=== PATIENT | female | born 1975 | race Caucasian/White ===

== ENCOUNTER 2016-06-01 15:06 | Emergency (ER) | payer MEDICAID ==
[~2016-06-01] VITALS: Ht 185.4 cm; Wt 186.0 kg
[~2016-06-01 15:06] MED LIST: ALBU90AE INH; BUDE10.2 INH; DICL100G8 TP; DULO30CA2 PO; FURO20TA3 PO; HYDR-3240 PO; HYDR-882 PO; MELO-184 PO; POTA10TA11 PO; SULF1TAB24 PO; TRAM50TA2 PO
[2016-06-01] MEDS ORDERED: SODIUM CHLORIDE 0.9% 1,000 ML IV ONE (15:37)
[2016-06-01] MEDS ORDERED: ONDANSETRON 2MG/ML, 2ML IVPush ONE (16:00)
[2016-06-01] MEDS ORDERED: SODIUM CHLORIDE FLUSH 10ML SYR IVF ONE (16:00)
[2016-06-01 16:05] LABS: BLOOD UREA NITROGEN 13 mg/dL (7-18)
[2016-06-01] MEDS ORDERED: ONDANSETRON 2MG/ML, 2ML ONE (16:23)
[2016-06-01] MEDS ORDERED: MORPHINE SULFATE 4 MG/ML, 1ML ONE (16:23)
[2016-06-01] MEDS ORDERED: morphine SULFATE 10 MG/ML, 1ML IVPush ONE (16:30)
[2016-06-01] MEDS ORDERED: OMNIPAQUE 350 MG/ML, 100ML BOTTLE ONE (17:54)
[2016-06-01 19:06] VITALS: BP 165/99
== END 2016-06-01 19:08 | disposition home or self-care (01) ==
LOC: ED 19:02
DX: K02.9 Dental caries, unspecified (principal); R10.2 Pelvic and perineal pain; D25.1 Intramural leiomyoma of uterus; J45.909 Unspecified asthma, uncomplicated; F17.200 Nicotine dependence, unspecified, uncomplicated; F12.10 Cannabis abuse, uncomplicated
CPT/HCPCS: 36415; 70487; 76830; 80048; 81001; 82040; 84703; 85025; 87086; 96361; 96374; 96375; 99285; J2270; J2405; J7030; Q9967

== ENCOUNTER → 2016-07-08 | Outpatient (CLI) | payer MEDICAID ==
[~2016-07-08] MED LIST changes: +OMNIPAQUE 350 MG/ML, 150 ML BOTTLE ONE
== END | disposition home or self-care (01) ==
LOC: CFH 07:15
PROVIDERS: ATTEND Obstetrics & Gynecology
DX: Z12.31 Encounter for screening mammogram for malignant neoplasm of breast (principal); R10.31 Right lower quadrant pain; D25.0 Submucous leiomyoma of uterus; K57.30 Diverticulosis of large intestine without perforation or abscess without bleeding; M46.1 Sacroiliitis, not elsewhere classified; N64.89 Other specified disorders of breast; Z90.49 Acquired absence of other specified parts of digestive tract
CPT/HCPCS: 74177; G0202; Q9967

== ENCOUNTER 2016-08-13 05:37 | Day surgery (SDC) | payer MEDICAID ==
[2016-08-11 16:30] LABS: BLOOD UREA NITROGEN 10 mg/dL (7-18)
[2016-08-11 16:52] LABS: ANISOCYTOSIS 1+; MICROCYTOSIS 1+; POLYCHROMASIA 1+
[2016-08-11 16:53] LABS: OVALOCYTES 1+
[~2016-08-13] VITALS: Ht 185.4 cm; Wt 184.5 kg
[~2016-08-13 05:37] MED LIST changes: +ALBU18HF PO; +FERROUS SULFATE PO; +FLUO20TA25 PO; -OMNIPAQUE 350 MG/ML, 150 ML BOTTLE ONE
[2016-08-13] MEDS ORDERED: LACTATED RINGERS 1,000 ML IV SCH (06:26)
[2016-08-13 06:27] VITALS: BP 138/90
[2016-08-13] MEDS ORDERED: BUPIVACAINE/PF 0.25% ONE (07:38)
[2016-08-13] MEDS ORDERED: VASOPRESSIN 20 UNIT/ML, 1ML ONE (07:38)
[2016-08-13] MEDS ORDERED: MIDAZOLAM 1 MG/ML, 2ML ONE (07:43)
[2016-08-13] MEDS ORDERED: FENTANYL PF 250 MCG/5ML ONE (07:44)
[2016-08-13] MEDS ORDERED: METOCLOPRAMIDE 5 MG/ML, 2ML ONE (07:52)
[2016-08-13] MEDS ORDERED: PROPOFOL 10 MG/ML, 20ML ONE (07:52)
[2016-08-13] MEDS ORDERED: ONDANSETRON 2MG/ML, 2ML ONE (07:52)
[2016-08-13] MEDS ORDERED: KETOROLAC 30 MG/1 ML ONE (07:52)
[2016-08-13] MEDS ORDERED: DEXAMETHASONE 4 MG/ML, 1ML ONE (07:52)
[2016-08-13] MEDS ORDERED: SUCCINYLCHOLINE 20 MG/ML, 10ML ONE (07:52)
[2016-08-13] MEDS ORDERED: PROMETHAZINE 25 MG/ML, 1ML IV PRN (08:30)
[2016-08-13] MEDS ORDERED: MIDAZOLAM 1 MG/ML, 2ML IV PRN (08:30)
[2016-08-13] MEDS ORDERED: OXYcodone 5 MG/5 ML ORAL.SOL UDC PO PRN (08:30)
[2016-08-13] MEDS ORDERED: FENTANYL PF 100 MCG/2ML IV PRN (08:30)
[2016-08-13] MEDS ORDERED: ALBUTEROL/IPRATROPIUM 2.5MG/0.5MG, 3 ML NPPB PRN (08:30)
[2016-08-13] MEDS ORDERED: hydrALAzine 20 MG/ML, 1ML IV PRN (08:30)
[2016-08-13] MEDS ORDERED: ONDANSETRON 2MG/ML, 2ML IVPush PRN (08:30)
[2016-08-13] MEDS ORDERED: MEPERIDINE/PF 25MG/0.5ML IVPush PRN (08:30)
[2016-08-13] MEDS ORDERED: LABETALOL 5MG/ML, 20ML IV PRN (08:30)
[2016-08-13] MEDS ORDERED: HYDROmorphone 1 MG/ML, 1ML IV PRN (08:30)
[2016-08-13] MEDS ORDERED: ACETAMINOPHEN 325 MG TABLET PO PRN (08:30)
[2016-08-13] MEDS ORDERED: ALBUTEROL SULFATE 2.5 MG/3 ML NPPB PRN (08:30)
[2016-08-13] MEDS ORDERED: FENTANYL PF 100 MCG/2ML ONE (08:54)
[2016-08-13] MEDS ORDERED: ACETAMINOPHEN 650 MG/20.3 ML UDC ONE (09:06)
[2016-08-13] MEDS ORDERED: OXYcodone 5 MG/5 ML ORAL.SOL UDC ONE (09:07)
== END 2016-08-13 11:00 | disposition home or self-care (01) ==
LOC: OUT 05:37
PROVIDERS: ATTEND Obstetrics & Gynecology
DX: N92.0 Excessive and frequent menstruation with regular cycle (principal); N94.5 Secondary dysmenorrhea; N93.8 Other specified abnormal uterine and vaginal bleeding; J45.909 Unspecified asthma, uncomplicated; E66.01 Morbid (severe) obesity due to excess calories; Z68.43 Body mass index [BMI] 50.0-59.9, adult; Z98.890 Other specified postprocedural states
CPT/HCPCS: 36415; 58558; 71020; 80048; 81001; 84703; 85025; 87086; 88305; 93005; J0330; J1100; J1885; J2250; J2405; J2704; J2765; J3010; J3490; J7120

== ENCOUNTER 2017-11-18 22:34 | Emergency (ER) | payer OTHER ==
[~2017-11-18] VITALS: Ht 185.4 cm; Wt 188.9 kg
[~2017-11-18 22:34] MED LIST changes: +DICL100G19 TP; -DICL100G8 TP; +HYDR-3653 PO; -HYDR-882 PO; -MELO-184 PO; +MELO15TA24 PO
[2017-11-18 22:38] VITALS: BP 152/95
== END 2017-11-19 00:05 | disposition home or self-care (01) ==
LOC: ED 11-19 00:04
DX: S80.12XA Contusion of left lower leg, initial encounter (principal); J45.909 Unspecified asthma, uncomplicated; Z76.0 Encounter for issue of repeat prescription; W22.8XXA Striking against or struck by other objects, initial encounter; Y93.89 Activity, other specified; Y99.8 Other external cause status; Y92.009 Unspecified place in unspecified non-institutional (private) residence as the place of occurrence of the external cause
CPT/HCPCS: 99284

== ENCOUNTER 2017-11-23 20:24 | Emergency (ER) | payer OTHER ==
[~2017-11-23] VITALS: Ht 185.4 cm; Wt 190.0 kg
[2017-11-23 20:25] VITALS: BP 154/79
[2017-11-23 20:46] LABS: BASOPHILS # (AUTO) 0.04 x10^3/uL (0-0.1); BASOPHILS % (AUTO) 0 % (0-1); EOSINOPHILS # (AUTO) 0.32 x10^3/uL (0-0.4); EOSINOPHILS % (AUTO) 3 % (1-7); LYMPHOCYTES # (AUTO) 2.29 x10^3/uL (1-3.4); LYMPHOCYTES % (AUTO) 19 % (22-44); MD NO; MEAN CORPUSCULAR HEMOGLOBIN 22.9 pg (27.0-34.8); MEAN CORPUSCULAR HGB CONC 32.2 g/dL (32.4-35.8); MEAN CORPUSCULAR VOLUME 71.1 fL (80-100); MEAN PLATELET VOLUME 8.1 fL (7.4-10.4); MONOCYTES # (AUTO) 1.08 x10^3/uL (0.2-0.8); MONOCYTES % (AUTO) 9 % (2-9); NEUTROPHILS # (AUTO) 8.51 x10^3/uL (1.8-6.8); NEUTROPHILS % (AUTO) 70 % (42-75); PLATELET COUNT 299 x10^3/uL (130-400); RED BLOOD COUNT 5.35 x10^6/uL (3.82-5.3); RED CELL DISTRIBUTION WIDTH 18.6 % (9.6-15.2)
[2017-11-23 20:59] LABS: ALANINE AMINOTRANSFERASE 20 U/L (12-78); ALBUMIN 3.3 g/dL (3.4-5.0); ANION GAP 7 mmol/L (5-15); CALCIUM 8.4 mg/dL (8.5-10.1); CHLORIDE 107 mmol/L (98-107); CREATININE 0.83 mg/dL (0.55-1.02)
[2017-11-23] MEDS ORDERED: HYDROcodone/APAP 5/325 TABLET PO ONE (21:00)
[2017-11-23] MEDS ORDERED: PHENAZOPYRIDINE 200 MG TABLET PO ONE (21:00)
[2017-11-23 21:01] LABS: ALKALINE PHOSPHATASE 82 U/L (45-117); BILIRUBIN,TOTAL 0.5 mg/dL (0.2-1.0); TOTAL PROTEIN 7.2 g/dL (6.4-8.2)
[2017-11-23] MEDS ORDERED: HYDROcodone/APAP 5/325 TABLET ONE (21:42)
== END 2017-11-23 22:07 | disposition home or self-care (01) ==
LOC: ED 21:57
DX: L03.116 Cellulitis of left lower limb (principal); J45.909 Unspecified asthma, uncomplicated; Z88.8 Allergy status to other drugs, medicaments and biological substances
CPT/HCPCS: 36415; 80053; 85025; 99285

== ENCOUNTER 2017-11-30 21:07 | Inpatient (IN) | payer OTHER ==
[~2017-11-30] VITALS: Ht 185.4 cm; Wt 193.6 kg
[2017-11-30] MEDS ORDERED: SODIUM CHLORIDE FLUSH 10ML SYR IVF ONE (21:30)
[2017-11-30] MEDS ORDERED: AMPICILLIN/SULBACTAM 3 GM in SODIUM CHLORIDE 0.9% 100 ML IVPB ONE (21:30)
[2017-11-30 22:22] LABS: BASOPHILS # (AUTO) 0.02 x10^3/uL (0-0.1); BASOPHILS % (AUTO) 0 % (0-1); EOSINOPHILS # (AUTO) 0.33 x10^3/uL (0-0.4); EOSINOPHILS % (AUTO) 3 % (1-7); LYMPHOCYTES # (AUTO) 1.72 x10^3/uL (1-3.4); LYMPHOCYTES % (AUTO) 18 % (22-44); MD NO; MEAN CORPUSCULAR HEMOGLOBIN 22.8 pg (27.0-34.8); MEAN CORPUSCULAR HGB CONC 31.7 g/dL (32.4-35.8); MEAN CORPUSCULAR VOLUME 71.8 fL (80-100); MEAN PLATELET VOLUME 7.9 fL (7.4-10.4); MONOCYTES # (AUTO) 0.65 x10^3/uL (0.2-0.8); MONOCYTES % (AUTO) 7 % (2-9); NEUTROPHILS # (AUTO) 7.13 x10^3/uL (1.8-6.8); NEUTROPHILS % (AUTO) 72 % (42-75); PLATELET COUNT 340 x10^3/uL (130-400); RED CELL DISTRIBUTION WIDTH 18.8 % (9.6-15.2)
[2017-11-30] MEDS ORDERED: ONDANSETRON 2MG/ML, 2ML ONE (22:25)
[2017-11-30] MEDS ORDERED: MORPHINE SULFATE 4 MG/ML, 1ML ONE (22:25)
[2017-11-30] MEDS ORDERED: MORPHINE SULFATE 4 MG/ML, 1ML IVPush PRN (22:30)
[2017-11-30] MEDS ORDERED: ONDANSETRON 2MG/ML, 2ML IVPush ONE (22:30)
[2017-11-30 22:31] LABS: ANION GAP 6 mmol/L (5-15); CALCIUM 8.4 mg/dL (8.5-10.1); CHLORIDE 107 mmol/L (98-107); CREATININE 0.74 mg/dL (0.55-1.02)
[2017-11-30] MEDS ORDERED: IBUP-1221 PO (22:41)
[2017-11-30] MEDS ORDERED: ACETAMINOPHEN 325 MG TABLET PO PRN (23:00)
[2017-11-30] MEDS ORDERED: ONDANSETRON ODT 4 MG PO PRN (23:00)
[2017-11-30] MEDS ORDERED: GABAPENTIN 300 MG CAPSULE PO PRN (23:00)
[2017-11-30] MEDS ORDERED: POLYETHYLENE GLYCOL 17 GM PACKET PO PRN (23:00)
[2017-11-30] MEDS ORDERED: DOCUSATE 100 MG CAPSULE PO PRN (23:00)
[2017-11-30] MEDS ORDERED: LABETALOL 5MG/ML, 20ML IVPush PRN (23:00)
[2017-11-30] MEDS ORDERED: hydrALAzine 20 MG/ML, 1ML IVPush PRN (23:00)
[2017-11-30] MEDS ORDERED: ONDANSETRON 2MG/ML, 2ML IVPush PRN (23:00)
[2017-11-30] MEDS ORDERED: BISACODYL 10 MG SUPP PR PRN (23:00)
[2017-11-30 23:15] LABS: HCT (SEDRATE) 35.9 % (34.6-47.8)
[2017-11-30 23:28] VITALS: BP 139/85
[2017-11-30] MEDS ORDERED: TEMPLATE NON-FORMULARY MED. (Albuterol Sulfate (Ventolin Hfa) 2 PUFFS) PO PRN (23:30)
[2017-11-30] MEDS ORDERED: ALBUTEROL MC SCH (23:30)
[2017-11-30] MEDS ORDERED: FUROSEMIDE 20 MG/2 ML IV ONE (23:30)
[2017-11-30] MEDS ORDERED: VANCOMYCIN PER PHARMACY MC PRN (23:30)
[2017-11-30] MEDS ORDERED: VANCOMYCIN PMX 1GM/200ML 200 ML IV ONE (23:30)
[2017-11-30 23:32] LABS: % IRON SATURATION 5 % (20-55); IRON LEVEL 19 mcg/dL (50-170); TOTAL IRON BINDING CAPACITY 386 mcg/dL (250-450); TRANSFERRIN 297 mg/dL (200-360)
[2017-11-30 23:39] LABS: HEMOGLOBIN A1C 5.7 % (4.2-6.3)
[2017-11-30] MEDS ORDERED: PHARMACOKINETIC MONITORING MC PRN (23:45)
[2017-11-30] MEDS ORDERED: PHARMACOKINETIC CONSULTATION MC ONE (23:45)
[2017-12-01] MEDS: NICOTINE 14MG/24 HR PATCH.TD24 TD SCH ×2 (00:13→23:29)
[2017-12-01] MEDS: ENOXAPARIN 40 MG/0.4 ML SQ SCH ×2 (00:13→23:30)
[2017-12-01 00:28] LABS: FREE T4 (FREE THYROXINE) 1.07 ng/dL (0.76-1.46); THYROID STIMULATING HORMONE 1.52 mIU/L (0.358-3.740)
[2017-12-01] MEDS: VANCOMYCIN 2,500 MG in SODIUM CHLORIDE 0.9% 500 ML IV SCH ×2 (00:52→14:29)
[2017-12-01] MEDS ORDERED: ALBUTEROL SULFATE 2.5 MG/3 ML NPPB PRN (01:30)
[2017-12-01 01:56] VITALS: BP 111/71
[2017-12-01] MEDS: AMPICILLIN/SULBACTAM 3 GM in SODIUM CHLORIDE 0.9% 100 ML IV SCH ×4 (04:39→23:30)
[2017-12-01] MEDS: morphine SULFATE 10 MG/ML, 1ML IVPush PRN ×2 (04:39→10:43)
[2017-12-01 04:51] LABS: MEAN CORPUSCULAR HEMOGLOBIN 22.8 pg (27.0-34.8); MEAN CORPUSCULAR HGB CONC 31.8 g/dL (32.4-35.8); MEAN CORPUSCULAR VOLUME 71.7 fL (80-100); MEAN PLATELET VOLUME 8.1 fL (7.4-10.4); PLATELET COUNT 316 x10^3/uL (130-400); RED BLOOD COUNT 4.95 x10^6/uL (3.82-5.3); RED CELL DISTRIBUTION WIDTH 18.6 % (9.6-15.2)
[2017-12-01 04:53] LABS: CHLORIDE 107 mmol/L (98-107)
[2017-12-01 04:59] LABS: ALANINE AMINOTRANSFERASE 15 U/L (12-78); ALBUMIN 2.8 g/dL (3.4-5.0); ALKALINE PHOSPHATASE 76 U/L (45-117); ANION GAP 5 mmol/L (5-15); BILIRUBIN,TOTAL 0.4 mg/dL (0.2-1.0); CALCIUM 8.3 mg/dL (8.5-10.1); CHOL/HDL RATIO 3.1; CHOLESTEROL, TOTAL 111 mg/dL (140-239); CREATININE 0.68 mg/dL (0.55-1.02); HDL CHOL % 32 % (28-40); HDL CHOLESTEROL (DIRECT) 36 mg/dL (40-60); LDL CHOLESTEROL,CALCULATED 51 mg/dL (54-169); LDL/HDL RATIO 1.4 (0.5-3.0); TOTAL PROTEIN 6.7 g/dL (6.4-8.2); TRIGLYCERIDES 121 mg/dL (50-200); VLDL CHOLESTEROL 24 mg/dL (0-25)
[2017-12-01 05:40] LABS: BASOPHILS # (AUTO) 0.01 x10^3/uL (0-0.1); BASOPHILS % (AUTO) 0 % (0-1); EOSINOPHILS # (AUTO) 0.35 x10^3/uL (0-0.4); EOSINOPHILS % (AUTO) 4 % (1-7); LYMPHOCYTES # (AUTO) 2.49 x10^3/uL (1-3.4); LYMPHOCYTES % (AUTO) 25 % (22-44); MD SCAN; MONOCYTES # (AUTO) 0.56 x10^3/uL (0.2-0.8); MONOCYTES % (AUTO) 6 % (2-9); NEUTROPHILS # (AUTO) 6.69 x10^3/uL (1.8-6.8); NEUTROPHILS % (AUTO) 66 % (42-75)
[2017-12-01 07:00] VITALS: BP 116/79
[2017-12-01] MEDS: FUROSEMIDE 20 MG/2 ML IV SCH (10:25)
[2017-12-01] MEDS: IRON SUCROSE COMPLEX 100MG/5ML IV SCH (10:49)
[2017-12-01] MEDS: OXYcodone IR 5MG TABLET PO PRN ×2 (14:39→20:23)
[2017-12-01 15:57] VITALS: BP 116/63
[2017-12-01 19:24] VITALS: BP 123/74
[2017-12-02] MEDS: morphine SULFATE 10 MG/ML, 1ML IVPush PRN (01:22)
[2017-12-02 02:30] VITALS: BP 121/86
[2017-12-02] MEDS: VANCOMYCIN 2,500 MG in SODIUM CHLORIDE 0.9% 500 ML IV SCH (02:38)
[2017-12-02] MEDS: AMPICILLIN/SULBACTAM 3 GM in SODIUM CHLORIDE 0.9% 100 ML IV SCH ×2 (05:40→06:26)
[2017-12-02] MEDS: OXYcodone IR 5MG TABLET PO PRN ×2 (05:40→09:38)
[2017-12-02] MEDS: NICOTINE 14MG/24 HR PATCH.TD24 TD SCH (06:07)
[2017-12-02 07:14] VITALS: BP 115/75
[2017-12-02] MEDS: FUROSEMIDE 20 MG/2 ML IV SCH (08:19)
[2017-12-02] MEDS: IRON SUCROSE COMPLEX 100MG/5ML IV SCH (08:20)
[2017-12-02] MEDS ORDERED: TRAM-47 PO (09:13)
[2017-12-02] MEDS ORDERED: AMOX1TAB64 PO (09:13)
== END 2017-12-02 11:00 | disposition home or self-care (01) | DRG 602 ==
LOC: ED 22:50 → EDIP 23:16 → 3NW 23:24 → DCLOUNGE 12-02 10:48
PROVIDERS: ADMIT Internal Medicine; ATTEND Hospitalist
DX: L03.116 Cellulitis of left lower limb (principal); E43 Unspecified severe protein-calorie malnutrition; Z68.43 Body mass index [BMI] 50.0-59.9, adult; E66.01 Morbid (severe) obesity due to excess calories; F17.210 Nicotine dependence, cigarettes, uncomplicated; D50.9 Iron deficiency anemia, unspecified; F32.9 Major depressive disorder, single episode, unspecified; J45.909 Unspecified asthma, uncomplicated; G89.29 Other chronic pain; K02.9 Dental caries, unspecified; M25.562 Pain in left knee; M81.0 Age-related osteoporosis without current pathological fracture; Z82.0 Family history of epilepsy and other diseases of the nervous system; V89.0XXA Person injured in unspecified motor-vehicle accident, nontraffic, initial encounter; Y93.89 Activity, other specified; Y92.89 Other specified places as the place of occurrence of the external cause; Z90.49 Acquired absence of other specified parts of digestive tract; Z88.8 Allergy status to other drugs, medicaments and biological substances
CPT/HCPCS: 36415; 80048; 80053; 80061; 82040; 82728; 83036; 83540; 83550; 83605; 83735; 84439; 84443; 84466; 84703; 85025; 85651; 86141; 87040; 93306; 93922; 96365; 96375; G0378; J0295; J1650; J1756; J2405; J3370; J1940; J2270; J7040

== ENCOUNTER 2018-12-22 06:23 | Emergency (ER) | payer OTHER ==
[~2018-12-22] VITALS: Ht 185.4 cm; Wt 180.4 kg
[~2018-12-22 06:23] MED LIST changes: +AMOX1TAB64 PO; +IBUP-1221 PO; +TRAM-47 PO
--- NOTE | 2018-12-22 07:00 | NUR ---
REPORT RECIEVED FROM BILLY RN, PT RESTING ON GLEN AT THIS TIME, NAD NOTED. DISCUSSED POC.
[2018-12-22 08:25] VITALS: BP 121/82
== END 2018-12-22 08:27 | disposition home or self-care (01) ==
LOC: ED 07:35
DX: J06.9 Acute upper respiratory infection, unspecified (principal)
CPT/HCPCS: 71046; 93005; 99283

== ENCOUNTER 2020-03-11 16:14 | Emergency (ER) | payer OTHER ==
[~2020-03-11] VITALS: Ht 185.4 cm; Wt 185.0 kg
[~2020-03-11 16:14] MED LIST changes: +HYDR-1067 PO; -HYDR-3240 PO
[2020-03-11 16:22] VITALS: BP 149/99
--- NOTE | 2020-03-11 17:23 | NUR ---
PLANT CHANGER: PT TO ROOM, VIA W/C
--- NOTE | 2020-03-11 17:51 | NUR ---
Assumed care of patient. C/O left knee pain x 2 hours s/p GLF. NAD. Will continue to monitor.
[2020-03-11] MEDS ORDERED: ACETAMINOPHEN 500 MG TABLET ONE (17:56)
[2020-03-11] MEDS ORDERED: IBUPROFEN 800 MG TABLET ONE (17:56)
--- NOTE | 2020-03-11 17:59 | NUR ---
Ibuprofen held because patient reprots taking 800mg ibuprofen 2-3 hours ago. Tylenol admin.
[2020-03-11] MEDS ORDERED: ACETAMINOPHEN 500 MG TABLET PO ONE (18:00)
[2020-03-11] MEDS ORDERED: IBUPROFEN 800 MG TABLET PO ONE (18:00)
[2020-03-11] MEDS ORDERED: NEOSPORIN OINT. PKT 1 PACKET ONE (18:20)
--- NOTE | 2020-03-11 18:49 | NUR ---
Resting comfortably in [facility].
--- NOTE | 2020-03-11 19:36 | NUR ---
Patient/Caregiver given discharge instructions and they have confirmed that they understand the instructions. Patient taken out in wheelchair for comfort.
== END 2020-03-11 19:37 | disposition home or self-care (01) ==
LOC: ED 19:24
DX: S83.92XA Sprain of unspecified site of left knee, initial encounter (principal); J45.901 Unspecified asthma with (acute) exacerbation; X58.XXXA Exposure to other specified factors, initial encounter; Y93.89 Activity, other specified; Y92.89 Other specified places as the place of occurrence of the external cause; Y99.8 Other external cause status
CPT/HCPCS: 29505; 99283

== ENCOUNTER 2020-08-29 12:07 | Emergency (ER) | payer OTHER ==
[~2020-08-29] VITALS: Ht 185.4 cm; Wt 185.8 kg
[~2020-08-29 12:07] MED LIST changes: -HYDR-1067 PO; +HYDR-2214 PO; +SULF-23 PO; -SULF1TAB24 PO
--- NOTE | 2020-08-29 12:46 | NUR ---
PT AMB TO ROOM FROM LAB OFFICE, GAIT STEADY
--- NOTE | 2020-08-29 12:51 | NUR ---
CONTACT WITH PT. 45 YR OLD FEMALE HERE WITH C/O "I HAD BLOOD IN MY URINE. I AM MENSTRATING BUT ITS DIFFERENT. I HAVE PAIN FROM THE TOP OF MY HIPS DOWN TO PELVIS AND IT GOES TO MY BACK. I DO HAVE A FIBROID TUMOR BUT IT HAS NEVER BEEN LIKE THIS.".
[2020-08-29 12:53] LABS: BASOPHILS % (AUTO) 1 % (0-1); EOSINOPHILS % (AUTO) 3 % (1-7); LYMPHOCYTES % (AUTO) 11 % (22-44); MEAN CORPUSCULAR HEMOGLOBIN 19.8 pg (27.0-34.8); MEAN CORPUSCULAR HGB CONC 30.3 g/dL (32.4-35.8); MEAN PLATELET VOLUME 8.4 fL (7.4-10.4); MONOCYTES % (AUTO) 9 % (2-9); NEUTROPHILS % (AUTO) 76 % (42-75); PLATELET COUNT 187 x10^3/uL (130-400); RED BLOOD COUNT 6.05 x10^6/uL (3.82-5.3); RED CELL DISTRIBUTION WIDTH 22.6 % (9.6-15.2)
[2020-08-29 13:02] LABS: ALBUMIN 3.1 g/dL (3.4-5.0); ANION GAP 3 mmol/L (5-15); CALCIUM 8.3 mg/dL (8.5-10.1); CHLORIDE 108 mmol/L (98-107)
--- NOTE | 2020-08-29 13:02 | NUR ---
MC COMPLETED ORDERED. PT ADRY WELL. GAUDENCIO WALKED TO LAB.
[2020-08-29 13:05] LABS: ALANINE AMINOTRANSFERASE 18 U/L (12-78); ALKALINE PHOSPHATASE 76 U/L (45-117); BILIRUBIN,TOTAL 0.6 mg/dL (0.2-1.0); CREATININE 0.61 mg/dL (0.55-1.02); TOTAL PROTEIN 6.9 g/dL (6.4-8.2)
[2020-08-29 13:10] LABS: MICROSCOPIC NOT IND
[2020-08-29] MEDS ORDERED: IBUPROFEN 600 MG TABLET ONE (13:50)
--- NOTE | 2020-08-29 13:54 | NUR ---
PT MEDICATED FOR 08/16 PAIN ORDERED. NO NEEDS EXPRESSED AT THIS TIME. "ITS EITHER MY FIBROID OR A KIDNEY STONE. EITHER WAY I'M GOING HOME AND SLEEP IT OFF"
[2020-08-29 13:55] VITALS: BP 157/97
[2020-08-29] MEDS ORDERED: IBUPROFEN 600 MG TABLET PO ONE (14:00)
--- NOTE | 2020-08-29 14:32 | NUR ---
PT DRESSED AND READY TO GO. NO IV TO DC. REVIEWED DC INSTRUCTIONS WITH PT. UNDERSTANDING VERBALIZED. PT LEFT AMB, GAIT STEADY WITH SIGNIFICANT OTHER.
== END 2020-08-29 14:34 | disposition home or self-care (01) ==
LOC: ED 14:25
DX: J45.41 Moderate persistent asthma with (acute) exacerbation (principal); R10.32 Left lower quadrant pain; F17.200 Nicotine dependence, unspecified, uncomplicated
CPT/HCPCS: 36415; 80053; 81003; 84703; 85025; 99283

== ENCOUNTER 2020-10-16 07:32 | Emergency (ER) | payer OTHER ==
[~2020-10-16] VITALS: Ht 185.4 cm; Wt 136.3 kg
[2020-10-16 07:39] VITALS: BP 169/95
== END 2020-10-16 08:24 | disposition home or self-care (01) ==
LOC: ED 07:49
DX: J45.31 Mild persistent asthma with (acute) exacerbation (principal); K02.9 Dental caries, unspecified; Z76.0 Encounter for issue of repeat prescription
CPT/HCPCS: 99283